=== PATIENT | male | born 1975 | race Caucasian/White ===

== ENCOUNTER 2019-12-04 07:51 | Emergency (ER) | payer SELFPAY ==
[~2019-12-04] VITALS: Ht 172.7 cm; Wt 190.0 kg
[~2019-12-04 07:51] MED LIST: HYDR-3164 PO; IBUP-1007 PO; SILV20CR14 TP
[2019-12-04 08:01] VITALS: BP 156/98
[2019-12-04] MEDS ORDERED: FLUORESCEIN OPHTH TEST STRIP. OD ONE (08:45)
[2019-12-04] MEDS ORDERED: TETRACAINE 0.5% OPHTH SOLUTION 4ML BOTTLE. OD ONE (08:45)
[2019-12-04] MEDS ORDERED: HYDR-3164 PO (09:00)
[2019-12-04] MEDS ORDERED: NEO/5DRO OD (09:00)
--- NOTE | 2019-12-04 09:00 | PHYS DOC ---
Past Medical History Past Medical History: No Pertinent History Past Surgical History: No Surgical History Alcohol Use: Occasionally Drug Use: None Adult General Chief Complaint Chief Complaint: FOREIGN BODY/EYES HPI HPI Patient is a 44 year old [f__sex] who presents with [] Review of Systems Review of Systems Constitutional: Denies fever or chills [] Eyes: Denies change in visual acuity, redness, or eye pain [] HENT: Denies nasal congestion or sore throat [] Respiratory: Denies cough or shortness of breath [] Cardiovascular: No additional information not addressed in HPI [] GI: Denies abdominal pain, nausea, vomiting, bloody stools or diarrhea [] : Denies dysuria or hematuria [] Musculoskeletal: Denies back pain or joint pain [] Integument: Denies rash or skin lesions [] Neurologic: Denies headache, focal weakness or sensory changes [] Endocrine: Denies polyuria or polydipsia [] All other systems were reviewed and found to be within normal limits, except as documented in this note. Current Medications Current Medications Current Medications Medications (Trade) Dose Ordered Sig/Norbert Start Time Stop Time Status Last Admin Dose Admin Fluorescein Sodium (Ful-Randi) 1 strip 1X ONCE 12/04/19 08:45 12/04/19 08:46 DC Tetracaine HCl (Tetracaine) 1 drop 1X ONCE 12/04/19 08:45 12/04/19 08:46 DC Allergies Allergies Allergies Coded Allergies Type Severity Reaction Last Updated Verified No Known Drug Allergies 05/13/16 No Physical Exam Physical Exam Constitutional: Well developed, well nourished, no acute distress, non-toxic appearance. [] HENT: Normocephalic, atraumatic, bilateral external ears normal, oropharynx moist, no oral exudates, nose normal. [] Eyes: PERRLA, EOMI, conjunctiva normal, no discharge. [] Neck: Normal range of motion, no tenderness, supple, no stridor. [] Cardiovascular:Heart rate regular rhythm, no murmur [] Lungs & Thorax: Bilateral breath sounds clear to auscultation [] Abdomen: Bowel sounds normal, soft, no tenderness, no masses, no pulsatile masses. [] Skin: Warm, dry, no erythema, no rash. [] Back: No tenderness, no CVA tenderness. [] Extremities: No tenderness, no cyanosis, no clubbing, ROM intact, no edema. [] Neurologic: Alert and oriented X 3, normal motor function, normal sensory function, no focal deficits noted. [] Psychologic: Affect normal, judgement normal, mood normal. [] Current Patient Data Vital Signs Vital Signs Date Time Temp Pulse Resp B/P (MAP) Pulse Ox O2 Delivery O2 Flow Rate FiO2 12/04/19 08:01 98.6 79 16 156/98 (117) 98 Room Air 98.6 EKG EKG [] Radiology/Procedures Radiology/Procedures [] Course & Med Decision Making Course & Med Decision Making Pertinent Labs and Imaging studies reviewed. (See chart for details) [] Dragon Disclaimer Dragon Disclaimer This electronic medical record was generated, in whole or in part, using a voice recognition dictation system. Departure Departure Impression: Primary Impression: Right corneal abrasion Additional Impression: Acute bacterial conjunctivitis of right eye Disposition: HOME, SELF-CARE (at [id number]) Condition: IMPROVED Referrals: NO PCP (PCP) Patient Instructions: Bacterial Conjunctivitis, Eye - Corneal Abrasion Additional Instructions: Do not rub your eye Follow-up with eye physician in 2-3 days if not getting better Return to ER if not getting better Thank you for visiting [facility]. We appreciate you trusting us with your care. If any additional problems come up don't hesitate to return to visit us. Please follow up with your primary care provider so they can plan additional care if needed and know about the problem that you had. If symptoms worsen come back to the Emergency Department. Any concerning symptoms that start such as chest pain, shortness of air, weakness or numbness on one side of the body, running high fevers or any other concerning symptoms return to the ER. Scripts Hydrocodone/Apap 5-325 (NORCO 5-325 TABLET) 1 Each Tablet 1 TAB PO PRN Q6HRS PRN for PAIN, #8 TAB 0 Refills Prov: DAO MCDONALD MD 12/04/19 Jorge/Polymyx B Sulf/Dexameth (MAXITROL EYE DROPS) 5 Ml Drops.susp 2 DROP OD Q4-6HRS for 7 Days, #5 ML Prov: DAO MCDONALD MD 12/04/19 Problem Qualifiers Primary Impression: Right corneal abrasion Encounter type: initial encounter Qualified Codes: S05.01XA - Injury of conjunctiva and corneal abrasion without foreign body, right eye, initial encounter DAO MCDONALD MD Dec 04, 2019 09:00
== END 2019-12-04 09:30 | disposition home or self-care (01) ==
LOC: ER 07:51
DX: S05.01XA Injury of conjunctiva and corneal abrasion without foreign body, right eye, initial encounter (principal); H10.31 Unspecified acute conjunctivitis, right eye; X58.XXXA Exposure to other specified factors, initial encounter; Y93.89 Activity, other specified; Y92.89 Other specified places as the place of occurrence of the external cause; Y99.8 Other external cause status
CPT/HCPCS: 99283

== ENCOUNTER 2020-03-29 06:47 | Emergency (ER) | payer SELFPAY ==
[~2020-03-29] VITALS: Ht 172.7 cm; Wt 86.3 kg
[~2020-03-29 06:47] MED LIST changes: +NEO/5DRO OD
[2020-03-29 07:24] VITALS: BP 137/82
--- NOTE | 2020-03-29 07:41 | PHYS DOC ---
Past Medical History Past Medical History: No Pertinent History Past Surgical History: No Surgical History Smoking Status: Current Every Day Smoker Alcohol Use: Occasionally Drug Use: None Adult General Chief Complaint Chief Complaint: EYE PROBLEMS HPI HPI Patient is a 44 year old male who was evaluated this emergency department 4 months ago for a right eye injury with possible foreign body who presents with right corneal ulcer and bilateral eye itching and redness. Patient states although he was instructed to follow-up with an eye doctor during his last ED visit he declined to do so or take the medications prescribed to him. Patient denies acute change in vision or eye pain. Reports itching and tearing of eyes bilaterally. No purulent drainage. No other acute symptoms or complaints. Review of Systems Review of Systems ROS as per HPI All other systems were reviewed and found to be within normal limits, except as documented in this note. Allergies Allergies Allergies Coded Allergies Type Severity Reaction Last Updated Verified No Known Drug Allergies 05/13/16 No Physical Exam Physical Exam Constitutional: Well developed, well nourished, no acute distress, non-toxic appearance. [] HENT: Normocephalic, atraumatic, bilateral external ears normal, oropharynx moist, no oral exudates, nose normal. [] Eyes: PERRL, conjunctivae injected, R eye, large central upper corneal ulcer, EOMI, no drainage or discharge. [] Neurologic: Alert and oriented X 3, normal motor function, normal sensory function, no focal deficits noted. [] Psychologic: Affect normal, judgement normal, mood normal. [] Current Patient Data Vital Signs Vital Signs Date Time Temp Pulse Resp B/P (MAP) Pulse Ox O2 Delivery O2 Flow Rate FiO2 5/20/20 07:24 97.8 66 16 137/82 (100) 100 Room Air 97.8 EKG EKG [] Radiology/Procedures Radiology/Procedures [] Course & Med Decision Making Course & Med Decision Making Pertinent Labs and Imaging studies reviewed. (See chart for details) [Chronic eye complaints including R eye ulcer in non-compliant patient requiring office ophthalmologic exam. Patient informed that he is at risk of vision loss/blindness if he does not follow eye doctor as soon as possible. He is provided the name of staff eye doctor and instructed to call this morning to schedule an appointment and notify office staff he was referred by the ED.] Dragon Disclaimer Dragon Disclaimer This electronic medical record was generated, in whole or in part, using a voice recognition dictation system. Departure Departure Impression: Primary Impression: Corneal ulcer of right eye Disposition: HOME, SELF-CARE Condition: STABLE Referrals: Lucio BOLAND MD NO PCP (PCP) Patient Instructions: Corneal Ulcer Additional Instructions: Please follow up with an eye doctor upon leaving the ER later this morning. Call Dr. Boland office to schedule an appointment. THANH YO DO March 29, 2020 07:41
== END 2020-03-29 08:11 | disposition home or self-care (01) ==
LOC: ER 06:47
DX: H16.001 Unspecified corneal ulcer, right eye (principal); L53.9 Erythematous condition, unspecified; F17.200 Nicotine dependence, unspecified, uncomplicated
CPT/HCPCS: 99281